=== PATIENT | female | born 2000 | race Caucasian/White ===

== ENCOUNTER 2024-02-02 02:52 | Emergency (ER) | payer OTHER ==
[~2024-02-02] VITALS: Ht 165.1 cm; Wt 76.4 kg
[2024-02-02 03:02] VITALS: BP 117/84; PULSE 125; TEMP 97.2; O2SAT 97
[2024-02-02 03:12] VITALS: RESP 14
[2024-02-02] MEDS: diphenhydrAMINE 25mg capsule PO ONE (03:52)
[2024-02-02] MEDS: triamcinolone acetonide 40mg/ml inj IM ONE (03:54)
[2024-02-02] MEDS: dexamethasone sod phosphate 10mg/ml inj IM STA (03:55)
== END 2024-02-02 04:23 | disposition home or self-care (01) ==
LOC: ER 02:53
DX: R21 Rash and other nonspecific skin eruption (principal); L50.9 Urticaria, unspecified
CPT/HCPCS: 96372; 99284; J1100; J3301; Q0163